=== PATIENT | female | born 1955 | race Caucasian/White ===

== ENCOUNTER 2020-03-21 13:19 | Emergency (ER) | payer MEDICARE ==
[~2020-03-21] VITALS: Ht 154.9 cm; Wt 80.0 kg
[2020-03-21 17:07] LABS: BASOPHILS % 0.7 % (0.0-2.0); HEMATOCRIT. 39.6 % (36.0-48.0); HEMOGLOBIN. 13.3 g/dL (12.0-16.0); LYMPHOCYTES % 26.8 % (20.0-50.0); MEAN CORPUSCULAR HEMOGLOBIN 29.4 pg (28.0-32.0); MEAN CORPUSCULAR VOLUME 87.3 fL (81.0-99.0); MEAN PLATELET VOLUME 9.2 fl (7.4-10.4); MONOCYTES % 5.9 % (2.0-8.0); NEUTROPHILS % 65.6 % (40.0-76.0); PLATELET 215 x1000/uL (130-400); RED BLOOD CELL COUNT 4.53 mill/uL (4.2-5.4); RED CELL DISTRIBUTION WIDTH 14.6 % (11.6-14.6)
[2020-03-21 17:13] LABS: CHLORIDE 107 mEq/L (98-107)
[2020-03-21 20:33] VITALS: BP 148/79
== END 2020-03-21 20:50 | disposition home or self-care (01) ==
LOC: ER 14:40
DX: I10 Essential (primary) hypertension (principal); E11.9 Type 2 diabetes mellitus without complications; E78.5 Hyperlipidemia, unspecified; M06.9 Rheumatoid arthritis, unspecified; Z79.899 Other long term (current) drug therapy
CPT/HCPCS: 36415; 80053; 85025; 93005; 99284

== ENCOUNTER 2025-04-23 15:31 | Inpatient (IN) | payer MEDICARE, MEDICAID ==
[~2025-04-23] VITALS: Ht 152.4 cm; Wt 68.7 kg
[~2025-04-23 15:31] MED LIST: AMLO10TA80 PO; ATOR40TA70 PO; BENA10TA74 PO; FOLI-43 PO; GABA-1180 PO; METF-414 PO
[2025-04-23 15:44] VITALS: O2SAT 98
[2025-04-23 15:58] LABS: BASOPHILS % 0.7 % (0.0-2.0); EOSINOPHILS % 0.6 % (0.0-5.0); HEMATOCRIT. 43.7 % (36.0-48.0); HEMOGLOBIN. 14.3 g/dL (12.0-16.0); LYMPHOCYTES % 23.8 % (20.0-50.0); MEAN PLATELET VOLUME 8.9 fl (7.4-10.4); MONOCYTES % 5.5 % (2.0-8.0); NEUTROPHILS % 69.4 % (40.0-76.0); PLATELET 232 x1000/uL (130-400); RED BLOOD CELL COUNT 5.04 mill/uL (4.2-5.4); RED CELL DISTRIBUTION WIDTH 15.3 % (11.6-14.6)
[2025-04-23 16:13] LABS: CREATININE 0.6 mg/dL (0.6-1.0); UREA NITROGEN BLOOD 10 mg/dL (9-23)
[2025-04-23 16:25] LABS: TROPONIN I HIGH SENSITIVITY 38 ng/L (3.0-34)
[2025-04-23 17:43] LABS: INR 1.0
[2025-04-23 17:53] LABS: PROTEIN TOTAL 7.5 g/dL (6.0-8.3)
[2025-04-23 17:54] LABS: ASPARTATE AMINOTRANSFERASE 21 IU/L (<34)
[2025-04-23 17:55] LABS: BILIRUBIN DIRECT 0.1 mg/dL (<=3.0); BILIRUBIN TOTAL 0.3 mg/dL (0.1-1.0)
[2025-04-23] MEDS: ASPIRIN 325MG EC TABLET PO ONE (19:27)
[2025-04-23] MEDS ORDERED: DOCUSATE SODIUM 100MG CAPSULE PO PRN (19:45)
[2025-04-23] MEDS ORDERED: ONDANSETRON HCL 4MG/2ML INJ IV PRN (19:45)
[2025-04-23] MEDS ORDERED: ACETAMINOPHEN 325MG TABLET PO PRN ×2 (19:45)
[2025-04-23] MEDS ORDERED: CLONIDINE 0.1MG TABLET PO PRN (19:45)
[2025-04-23] MEDS ORDERED: IPRATROPIUM/ALBUTEROL 0.5-3(2.5)MG/3ML NEB HHN PRN (19:45)
[2025-04-23 21:42] LABS: CLARITY URINE CLEAR (CLEAR); GLUCOSE URINE 3+ (NEGATIVE); KETONES URINE NEGATIVE (NEGATIVE); LEUKOCYTE ESTERASE URINE NEGATIVE (NEGATIVE); NITRITE URINE NEGATIVE (NEGATIVE); OCCULT BLOOD URINE NEGATIVE (NEGATIVE); PH URINE 5.5 (4.5-8.0); PROTEIN URINE NEGATIVE (NEGATIVE); SPECIFIC GRAVITY URINE 1.034 (1.005-1.030); UROBILINOGEN URINE 0.2 E.U./dL (0.2-1.0)
[2025-04-23 21:43] LABS: *AMPHETAMINES SCREEN URINE NEGATIVE (NEGATIVE); *BARBITURATES SCREEN URINE NEGATIVE (NEGATIVE); *BENZODIAZEPINES SCREEN URINE NEGATIVE (NEGATIVE); *COCAINE SCREEN URINE NEGATIVE (NEGATIVE)
[2025-04-23 21:44] LABS: CANNABINOID URINE SCREEN NEGATIVE (NEGATIVE); ECSTASY MDMA SCREEN URINE NEGATIVE (NEGATIVE); METHADONE URINE SCREEN NEGATIVE (NEGATIVE); OPIATES URINE SCREEN NEGATIVE (NEGATIVE); PHENCYCLIDINE URINE SCREEN NEGATIVE (NEGATIVE)
[2025-04-23] MEDS: ATORVASTATIN CALCIUM 40MG TABLET PO SCH (21:52)
[2025-04-23] MEDS: KCL 10MEQ/50ML PREMIX 50 ML IV NR (21:52)
[2025-04-23 22:02] LABS: COLOR URINE STRAW (YELLOW)
[2025-04-23 22:03] LABS: BACTERIA URINE NONE SEEN; RBC URINE NONE SEEN /hpf (0-2); SQUAMOUS EPITHELIAL CELL URINE 1+ /lpf (RARE/1+); WBC URINE 0-2 /hpf (0-2); YEAST URINE 1+
[2025-04-23 22:57] VITALS: BP 120/82; PULSE 62; RESP 16; O2SAT 98
[2025-04-23 22:59] VITALS: BP 121/88; PULSE 63; RESP 17; O2SAT 98
[2025-04-23] MEDS: ENOXAPARIN 30MG/0.3ML SYR SUBCUT SCH (22:59)
[2025-04-23 23:00] VITALS: BP 130/84; PULSE 66; RESP 16; O2SAT 98
[2025-04-23 23:04] VITALS: BP 130/84; PULSE 62; RESP 14; TEMP 36.8628
[2025-04-24] VITALS: BP 109/69; PULSE 49; RESP 17; TEMP 36.8; O2SAT 91
[2025-04-24 00:47] LABS: TROPONIN I HIGH SENSITIVITY 32 ng/L (3.0-34)
[2025-04-24 04:00] VITALS: BP 111/66; PULSE 63; RESP 13; TEMP 36.7; O2SAT 95
[2025-04-24] MEDS ORDERED: LEVO125T8 MT (05:20)
[2025-04-24] MEDS ORDERED: CHOL2000 (05:20)
[2025-04-24] MEDS ORDERED: METH2.5T MT (05:20)
[2025-04-24] MEDS ORDERED: SULF500T8 PO (05:20)
[2025-04-24] MEDS ORDERED: DAPA10TA MT (05:20)
[2025-04-24] MEDS ORDERED: HYDR200T35 MT (05:20)
[2025-04-24] MEDS ORDERED: PREG150C MT (05:20)
[2025-04-24] MEDS ORDERED: DEXTROSE 50% WATER 50ML SYRINGE IV PRN (06:30)
[2025-04-24 06:51] LABS: CREATININE 0.5 mg/dL (0.6-1.0)
[2025-04-24 06:52] LABS: LDL CHOLESTEROL 69 mg/dL (5-100); TRIGLYCERIDE 165 mg/dL (0-150); TROPONIN I HIGH SENSITIVITY 34 ng/L (3.0-34); UREA NITROGEN BLOOD 11 mg/dL (9-23)
[2025-04-24 06:53] LABS: BASOPHILS % 0.4 % (0.0-2.0); EOSINOPHILS % 0.8 % (0.0-5.0); HEMATOCRIT. 40.1 % (36.0-48.0); HEMOGLOBIN. 13.5 g/dL (12.0-16.0); LYMPHOCYTES % 29.0 % (20.0-50.0); MEAN PLATELET VOLUME 9.2 fl (7.4-10.4); MONOCYTES % 5.7 % (2.0-8.0); NEUTROPHILS % 64.1 % (40.0-76.0); PLATELET 193 x1000/uL (130-400); RED BLOOD CELL COUNT 4.69 mill/uL (4.2-5.4); RED CELL DISTRIBUTION WIDTH 15.7 % (11.6-14.6)
[2025-04-24 06:57] LABS: T4 FREE 1.69 ng/dL (0.89-1.76)
[2025-04-24] MEDS: BLOOD SUGAR DIAGNOSTIC STRIP TEST SCH (07:06)
[2025-04-24] MEDS: INSULIN LISPRO 100 UNITS/ML SUBCUT SCH (07:07)
[2025-04-24 08:00] VITALS: BP 123/80; PULSE 60; RESP 16; TEMP 36.8; O2SAT 96
[2025-04-24] MEDS ORDERED: METHOTREXATE SODIUM 2 . 5MG TABLET PO SCH ×2 (08:45→20:00)
[2025-04-24] MEDS: SULFASALAZINE 500MG TABLET PO SCH (09:00)
[2025-04-24] MEDS: EMPAGLIFLOZIN 10MG TABLET PO SCH (09:17)
[2025-04-24] MEDS: AMLODIPINE 10MG TABLET PO SCH (09:18)
[2025-04-24] MEDS: LISINOPRIL 10MG TABLET PO SCH (09:18)
[2025-04-24] MEDS: ASPIRIN 81MG EC TABLET PO SCH (09:19)
[2025-04-24] MEDS: PANTOPRAZOLE SODIUM 40 MG/VIAL IV SCH (09:19)
[2025-04-24] MEDS: HYDROXYCHLOROQUINE SULFATE 200MG TABLET PO SCH (09:19)
[2025-04-24] MEDS: LEVOTHYROXINE SODIUM 125MCG TABLET PO NR (09:19)
[2025-04-24] MEDS: FOLIC ACID 1MG TABLET PO SCH (09:22)
[2025-04-24] MEDS: GABAPENTIN 300MG CAPSULE PO SCH (09:22)
[2025-04-24 12:00] VITALS: BP 132/82; PULSE 78; RESP 18; TEMP 36.8; O2SAT 96
[2025-04-24 12:25] LABS: PHOSPHORUS 4.2 mg/dL (2.5-4.9)
[2025-04-24] MEDS: LORAZEPAM 2MG/ML UD SYRINGE IV NR (14:11)
[2025-04-24] MEDS ORDERED: MECLIZINE 12.5MG TABLET PO PRN (15:30)
[2025-04-24 16:00] VITALS: BP 105/92; PULSE 79; RESP 16; TEMP 37; O2SAT 96
[2025-04-24] MEDS: METHOTREXATE SODIUM 2 . 5MG TABLET PO SCH (19:48)
[2025-04-24 20:00] VITALS: BP 135/81; PULSE 76; RESP 18; TEMP 36.8; O2SAT 96
[2025-04-25] VITALS: BP 111/78; PULSE 72; RESP 15; TEMP 36.3; O2SAT 93
[2025-04-25 04:00] VITALS: BP 133/78; PULSE 74; RESP 17; TEMP 36.7
[2025-04-25 07:01] LABS: BASOPHILS % 0.5 % (0.0-2.0); EOSINOPHILS % 0.6 % (0.0-5.0); HEMATOCRIT. 40.2 % (36.0-48.0); HEMOGLOBIN. 13.2 g/dL (12.0-16.0); LYMPHOCYTES % 27.3 % (20.0-50.0); MEAN PLATELET VOLUME 9.3 fl (7.4-10.4); MONOCYTES % 6.5 % (2.0-8.0); NEUTROPHILS % 65.1 % (40.0-76.0); PLATELET 206 x1000/uL (130-400); RED BLOOD CELL COUNT 4.64 mill/uL (4.2-5.4); RED CELL DISTRIBUTION WIDTH 15.5 % (11.6-14.6)
[2025-04-25 07:05] LABS: CREATININE 0.6 mg/dL (0.6-1.0)
[2025-04-25 07:06] LABS: UREA NITROGEN BLOOD 14 mg/dL (9-23)
[2025-04-25 07:08] LABS: PHOSPHORUS 4.2 mg/dL (2.5-4.9)
[2025-04-25 08:00] VITALS: BP 109/77; PULSE 77; RESP 22; TEMP 36.7; O2SAT 98
[2025-04-25 12:00] VITALS: BP 124/76; PULSE 76; TEMP 36.8; O2SAT 97
[2025-04-25] MEDS ORDERED: MECL-217 MT (13:07)
[2025-04-25 15:06] VITALS: BP 114/78; PULSE 83; RESP 16; TEMP 97.7
[2025-04-26] MEDS ORDERED: FAMOTIDINE 20MG/2ML VIAL IV SCH (09:00)
== END 2025-04-25 15:50 | disposition home or self-care (01) | DRG 74 ==
LOC: ER 15:31 → 3WST 18:45 → EDBEDREQ 18:48 → EDBEDREQTM 18:48
PROVIDERS: ADMIT Internal Medicine; ATTEND Internal Medicine
DX: G90.89 Other disorders of autonomic nervous system (principal); I24.89 Other forms of acute ischemic heart disease; I10 Essential (primary) hypertension; E89.0 Postprocedural hypothyroidism; E11.9 Type 2 diabetes mellitus without complications; H81.4 Vertigo of central origin; H81.10 Benign paroxysmal vertigo, unspecified ear; E87.6 Hypokalemia; E78.5 Hyperlipidemia, unspecified; M54.12 Radiculopathy, cervical region; R79.89 Other specified abnormal findings of blood chemistry; Z85.850 Personal history of malignant neoplasm of thyroid
CPT/HCPCS: 36415; 70551; 71045; 72040; 80048; 80061; 80076; 80305; 81003; 82550; 82962; 83036; 83735; 83880; 84100; 84439; 84443; 84484; 85025; 85379; 85651; 86141; 93005; 99285; A4606; J1650; J1815; J2060; J2470; J3480; J8610